=== PATIENT | male | born 1960 | race American Indian/Alaskan Native ===

== ENCOUNTER 2018-12-15 02:32 | Observation (INO) | payer OTHER ==
[2018-12-15] MEDS ORDERED: ZOFRAN IV ONE (03:04)
[2018-12-15] MEDS ORDERED: NITRO-BID 2% TP ONE (03:04)
[2018-12-15] MEDS ORDERED: SUBLIMAZE IV ONE ×2 (03:04→06:02)
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
[2018-12-15 03:17] LABS: Basophils % (Auto) 0.7 % (0.0-1.8); Eosinophils # (Auto) 0.1 K/mm3 (0.0-0.4); Eosinophils % (Auto) 0.9 % (0.0-4.3); Hematocrit 41.6 % (35.5-45.6); Lymphocytes # (Auto) 1.9 K/mm3 (1.2-5.4); Lymphocytes % (Auto) 31.1 % (13.4-35.0); Mean Corpuscular HGB Conc 34 % (32-34); Mean Corpuscular Hemoglobin 31 pg (28-32); Mean Corpuscular Volume 93 fl (84-94); Monocytes # (Auto) 0.4 K/mm3 (0.0-0.8); Monocytes % (Auto) 7.2 % (0.0-7.3); Platelet Count 206 K/mm3 (140-440)
--- NOTE | 2018-12-15 03:26 | XRay Report ---
CHEST 1 VIEW INDICATION / CLINICAL INFORMATION: Chest Pain. COMPARISON: None available. FINDINGS: SUPPORT DEVICES: None. HEART / MEDIASTINUM: Heart size is normal. Atherosclerotic changes are seen in the thoracic aorta LUNGS / PLEURA: No significant pulmonary or pleural abnormality. No pneumothorax. ADDITIONAL FINDINGS: No significant additional findings. IMPRESSION: 1. No acute findings. Signer Name: Olvin Chambers MD Signed: 12/15/2018 3:21 AM Workstation Name: [id number]
[2018-12-15 04:06] LABS: BUN/Creatinine Ratio 16; Blood Urea Nitrogen 14 mg/dL (9-20); Calcium 9.1 mg/dL (8.4-10.2); Hemolysis Index 13
[2018-12-15] MEDS ORDERED: ULTRAM PO PRN (06:29)
[2018-12-15] MEDS ORDERED: TYLENOL PO PRN (06:30)
[2018-12-15] MEDS ORDERED: ZOFRAN IV PRN (06:30)
[2018-12-15] MEDS ORDERED: ASPIRIN PO NR (06:30)
[2018-12-15] MEDS ORDERED: SODIUM CHLORIDE FLUSH SYRINGE 10 ML IV PRN (06:30)
[2018-12-15] MEDS ORDERED: ALUM-MAG HYDROX-SIMETH 200-200-20MG/5ML PO ONE (06:40)
[2018-12-15] MEDS ORDERED: PROTONIX PO SCH ×2 (06:40→07:00)
[2018-12-15] MEDS ORDERED: PEPCID IV ONE (06:40)
--- NOTE | 2018-12-15 06:52 | Cat Scan Report ---
CT angio chest INDICATION / CLINICAL INFORMATION: chest pain. TECHNIQUE: Precontrast bolus timing images were obtained followed by postcontrast axial and reformatted images. 3-plane MIP reconstructions were performed at an independent workstation by the technologist. All CT scans at this location are performed using CT dose reduction for ALARA by means of automated exposure control. COMPARISON: None available. FINDINGS: Pulmonary arterial enhancement is normal. No evidence of pulmonary embolus. No acute interstitial or airspace pulmonary disease. Mediastinal images are normal. Limit of abdominal images and skeletal structures are negative IMPRESSION: 1. No evidence of pulmonary embolus or acute lung disease. Signer Name: Olvin Chambers MD Signed: 12/15/2018 6:48 AM Workstation Name: [id number]
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
[2018-12-15] MEDS ORDERED: ASPIRIN PO ONE (07:00)
[2018-12-15] MEDS ORDERED: LEXISCAN IV ONE ×2 (07:39→07:56)
[2018-12-15] MEDS ORDERED: NORVASC PO SCH (10:00)
[2018-12-15] MEDS ORDERED: SODIUM CHLORIDE FLUSH SYRINGE 10 ML IV SCH (10:00)
[2018-12-15] MEDS ORDERED: XARELTO PO SCH (10:00)
[2018-12-15] MEDS ORDERED: ZOLOFT PO SCH (10:00)
[2018-12-15 12:33] VITALS: BP 148/82
--- NOTE | 2018-12-15 15:55 | Discharge Summary ---
Providers - Providers Date of Admission: 12/15/18 06:30 Date of discharge: 12/15/18 Attending physician: KEV COLUNGA Primary care physician: ELVIN FUENTES MD Hospitalization Condition: Fair Disposition: DC-01 TO HOME OR SELFCARE Core Measure Documentation - Palliative Care Palliative Care/ Comfort Measures: Not Applicable - Core Measures Any of the following diagnoses?: none Exam - Constitutional Vitals: Temp Pulse Resp BP Pulse Ox 97.6 F 53 L 18 148/82 100 12/15/18 12:31 12/15/18 12:31 12/15/18 12:31 12/15/18 12:31 12/15/18 12:31 Plan Activity: no restrictions Diet: low fat, low cholesterol, low salt Additional Instructions: 1.Follow up with PCP or [facility] in 1 week. Follow up with: PRIMARY CAREMD [Primary Care Provider] - 3-5 Days
--- NOTE | 2018-12-16 00:21 | Treadmill Report ---
THALLIUM STRESS TEST LEFT VENTRICLE: Left ventricular chamber size is within normal spread. Perfusion study demonstrates homogeneous uptake of the tracer in all segments, no significant perfusion defects identified. Gated analysis demonstrates normal left ventricular systolic function, ejection fraction 65%. CONCLUSION: Normal myocardial perfusion study. JOB# [id number] CA/NTS
== END 2018-12-15 18:23 | disposition home or self-care (01) ==
LOC: ED 02:32 → SUATTDRO 02:32 → 4A 06:30 → EEVIPCON 06:30
PROVIDERS: ADMIT Internal Medicine; ATTEND Internal Medicine
DX: R07.89 Other chest pain (principal); R10.13 Epigastric pain; K21.9 Gastro-esophageal reflux disease without esophagitis; I10 Essential (primary) hypertension; I26.99 Other pulmonary embolism without acute cor pulmonale; Z98.890 Other specified postprocedural states; Z87.891 Personal history of nicotine dependence; Z79.82 Long term (current) use of aspirin; Z79.899 Other long term (current) drug therapy
CPT/HCPCS: 36415; 71045; 71275; 78452; 80048; 84484; 85025; 85379; 93005; 93010; 93017; 93306; 96374; 96375; 96376; 99284; A9502; G0378; J2405; J2785; J3010; Q9967